=== PATIENT | male | born 1965 | race Caucasian/White ===

== ENCOUNTER 2020-07-08 22:30 | Emergency (ER) | payer SELFPAY ==
--- NOTE | 2020-07-08 23:11 | ER Document Report ---
ED Medical Screen (RME) - General Chief Complaint: Medical Clearance Stated Complaint: MEDICAL CLEARANCE Time Seen by Provider: 07/08/20 23:03 Primary Care Provider: SURJIT OLSON [Primary Care Provider] - Follow up as needed Mode of Arrival: Ambulatory Information source: Patient Notes: 55-year-old male presented to ED for EtOH intoxication. He needs clearance to go to [facility]. He is here with mobile crisis. She states she came earlier and he was much more alert and cooperative and she came back to get him to take him to [facility] and he was intoxicated. He states he drank a half a gallon of vodka the day. He states he does use meth but has not used any in about a week and is very angry about that. He states he does not use any other type of drugs. I spoke with the charge nurse about what he is here for. I have greeted and performed a rapid initial assessment of this patient. A comprehensive ED assessment and evaluation of the patient, analysis of test r esults and completion of medical decision making process will be conducted by an additional ED providers. 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 Malignancy Medical History: Reports None GI Medical History: Reports: None Musculoskeltal Medical History: Reports None Skin Medical History: Reports None Psychiatric Medical History: Reports: None Traumatic Medical History: Reports: Hx Fractures - right leg compound fracture "awhile back" Infectious Medical History: Reports: None Surgical Hx: Negative Past Surgical History: Reports: None - Immunizations Hx Diphtheria, Pertussis, Tetanus Vaccination: Yes Physical Exam - Vital signs Vitals: Temp Pulse Resp BP Pulse Ox 98.2 F 108 H 20 167/105 H 96 07/08/20 22:50 07/08/20 22:50 07/08/20 22:50 07/08/20 22:50 07/08/20 22:50 Course - Vital Signs Vital signs: Temp Pulse Resp BP Pulse Ox 98.2 F 108 H 20 167/105 H 96 07/08/20 22:50 07/08/20 22:50 07/08/20 22:50 07/08/20 22:50 07/08/20 22:50 Doctor's Discharge - Discharge Referrals: LOCALMD,NO [Primary Care Provider] - Follow up as needed
--- NOTE | 2020-07-08 23:50 | ER Document Report ---
ED General - General Chief Complaint: ETOH Abuse Stated Complaint: MEDICAL CLEARANCE Time Seen by Provider: 07/08/20 23:03 Primary Care Provider: SURJIT OLSON [NO LOCAL MD] - Follow up as needed Mode of Arrival: Ambulatory - [facility] Notes: 55-year-old male presents with alcohol intoxication. Patient is a daily consumer of alcohol, typically drinks 1/5 of vodka, states he last drink this morning. He was intended to go to rehab facility, however he was too intoxicated therefore came to the emergency department for medical clearance. Patient currently denies complaints and he is eager to leave the emergency department so that he may go to treatment. 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 Malignancy Medical History: Reports None GI Medical History: Reports: None Musculoskeletal Medical History: Reports None Skin Medical History: Reports None Psychiatric Medical History: Reports: None Traumatic Medical History: Reports: Hx Fractures - right leg compound fracture "awhile back" Infectious Medical History: Reports: None Surgical Hx: Negative Past Surgical History: Reports: None - Immunizations Hx Diphtheria, Pertussis, Tetanus Vaccination: Yes Review of Systems - Review of Systems Constitutional: No symptoms reported EENT: No symptoms reported Cardiovascular: No symptoms reported Respiratory: No symptoms reported Gastrointestinal: No symptoms reported Genitourinary: No symptoms reported Male Genitourinary: No symptoms reported Musculoskeletal: No symptoms reported Skin: No symptoms reported Hematologic/Lymphatic: No symptoms reported Neurological/Psychological: No symptoms reported Physical Exam - Vital signs Vitals: Temp Pulse Resp BP Pulse Ox 98.2 F 108 H 20 167/105 H 96 07/08/20 22:50 07/08/20 22:50 07/08/20 22:50 07/08/20 22:50 07/08/20 22:50 - General General appearance: Appears well, Alert In distress: None - HEENT Head: Normocephalic, Atraumatic Eyes: No: Scleral icterus Extraocular movements intact: Yes Pupils: PERRL - Respiratory Respiratory status: No respiratory distress - Cardiovascular Rhythm: Regular - Abdominal Inspection: No: Obese - Extremities General upper extremity: Normal ROM General lower extremity: Normal ROM - Neurological Neuro grossly intact: Yes Cognition: Normal Orientation: AAOx4 Notes: Ambulatory with steady gait - Psychological Associated symptoms: Other - Intoxicated - Skin Skin Color: Normal Course - Re-evaluation Re-evalutation: 55-year-old male with daily alcohol use here for medical clearance that he may go to [place]. On exam he does appear to be intoxicated, however speaks with full and clear sentences, ambulates with steady gait. Last drink alcohol this morning per his report. Labs have been ordered as part of the medical clearance process. He voices no complaints at this time and is otherwise well-appearing. 07/09/20 00:46 And a level 404 unfortunately, patient is drinking p.o. fluids. Nursing reports that he is having some agitation and wanting to leave the emergency department, I have ordered a Valium to help calm him. Will need a repeat ethanol level around 4 AM 07/09/20 01:36 No leukocytosis. Chronic anemia. Electrolytes within normal limits. Creatinine within normal limits. No elevation of LFTs. No UTI. Salicylates/APAP negative. UDS negative. 07/09/20 02:40 Patient to be turned over to overnight physician pending repeat alcohol level. If near or below 250 feel that he is appropriate for discharge to [place]. - Vital Signs Vital signs: Temp Pulse Resp BP Pulse Ox 98.2 F 108 H 17 167/105 H 98 07/08/20 22:50 07/08/20 22:50 07/09/20 01:10 07/08/20 22:50 07/09/20 01:10 - Laboratory Result Diagrams: 07/08/20 23:45 07/08/20 23:45 Laboratory results interpreted by me: 07/08/20 07/08/20 23:45 23:45 RBC 5.59 H Hgb 11.4 L Hct 35.8 L MCV 64 L MCH 20.4 L MCHC 31.8 L RDW 25.6 H Plt Count 522 H Lymph % (Auto) 45.2 H Total Protein 8.6 H Salicylates < 1.0 L Acetaminophen < 10 L Serum Alcohol 404 H* - EKG Interpretation by Me Additional EKG results interpreted by me: EKG is interpreted by me. Normal sinus rhythm, rate 94. Narrow QRS, QTC within normal limits. No ST segment elevation. Discharge - Discharge Clinical Impression: Alcohol intoxication Qualifiers: Complication of substance-induced condition: uncomplicated Qualified Code(s): F10.920 - Alcohol use, unspecified with intoxication, uncomplicated Disposition: PSYCH HOSP/UNIT Additional Instructions: Please go to [facility] to receive treatment for alcohol abuse. Return to the emergency department for any concerning worsening symptoms. Referrals: LOCALMD,NO [NO LOCAL MD] - Follow up as needed
[2020-07-09 00:25] LABS: ABSOLUTE BASOPHILS # (AUTO) 0.1 10^3/uL (0.0-0.2); ABSOLUTE EOSINOPHILS # (AUTO) 0.4 10^3/uL (0.0-0.6); ABSOLUTE LYMPHOCYTES (AUTO) 3.2 10^3/uL (0.5-4.7); ABSOLUTE MONOCYTES (AUTO) 0.4 10^3/uL (0.1-1.4); BASOPHILS % (AUTO) 1.1 % (0-2); EOSINOPHILS % (AUTO) 5.7 % (0-6); HEMATOCRIT 35.8 % (37.9-51.0); HEMOGLOBIN 11.4 g/dL (13.5-17.0); LYMPHOCYTES % (AUTO) 45.2 % (13-45); MEAN CORPUSCULAR HEMOGLOBIN 20.4 pg (27.0-33.4); MEAN CORPUSCULAR HGB CONC 31.8 g/dL (32.0-36.0); MONOCYTES % (AUTO) 5.5 % (3-13); PLATELET COUNT 522 10^3/uL (150-450); RED BLOOD COUNT 5.59 10^6/uL (4.35-5.55); RED CELL DISTRIBUTION WIDTH 25.6 % (11.5-14.0); SEGMENTED NEUTROPHILS % (AUTO) 42.5 % (42-78); TOTAL CELLS COUNTED % (AUTO) 100 %; WHITE BLOOD COUNT 7.1 10^3/uL (4.0-10.5)
[2020-07-09 00:27] LABS: ALBUMIN 4.8 g/dL (3.5-5.0); ALKALINE PHOSPHATASE 85 U/L (38-126); ANION GAP 17 (5-19); ASPARTATE AMINO TRANSFERASE 31 U/L (17-59); BILIRUBIN,DIRECT 0.2 mg/dL (0.0-0.4); BILIRUBIN,TOTAL 0.4 mg/dL (0.2-1.3); BLOOD UREA NITROGEN 12 mg/dL (7-20); CALCIUM 9.6 mg/dL (8.4-10.2); CARBON DIOXIDE 22 mmol/L (22-30); CHLORIDE 106 mmol/L (98-107); GLUCOSE 97 mg/dL (75-110); POTASSIUM 4.8 mmol/L (3.6-5.0); TOTAL PROTEIN 8.6 g/dL (6.3-8.2)
[2020-07-09 00:28] LABS: ACETAMINOPHEN < 10 ug/mL (10-30); SALICYLATE < 1.0 mg/dL (2.0-20.0)
[2020-07-09 00:40] LABS: ALCOHOL 404 mg/dL (NONE DETECTED)
[2020-07-09] MEDS ORDERED: DIAZEPAM 5 MG TABLET PO ONE (00:43)
[2020-07-09 00:57] LABS: APPEARANCE,URINE CLEAR; BILIRUBIN,URINE NEGATIVE (NEGATIVE); COLOR,URINE STRAW; GLUCOSE, URINE NEGATIVE (NEGATIVE); KETONES,URINE NEGATIVE (NEGATIVE); LEUKOCYTE ESTERASE,URINE NEGATIVE (NEGATIVE); NITRITE,URINE NEGATIVE (NEGATIVE); PROTEIN,URINE NEGATIVE (NEGATIVE); URINE SPECIFIC GRAVITY 1.004; UROBILINOGEN,URINE NEGATIVE mg/dL (<2.0)
[2020-07-09 01:01] LABS: TOXIC GRANULATION 1+
[2020-07-09 01:02] LABS: ANISOCYTOSIS 3+; HYPOCHROMASIA 2+; OVALOCYTES SLIGHT; PLATELET COMMENT INCREASED; POIKILOCYTOSIS SLIGHT; POLYCHROMASIA SLIGHT
[2020-07-09 01:03] LABS: MEAN CORPUSCULAR VOLUME 64 fl (80-97)
[2020-07-09 01:17] LABS: URINE AMPHETAMINES SCREEN NEGATIVE; URINE BARBITURATES SCREEN NEGATIVE; URINE BENZODIAZEPINES SCREEN NEGATIVE; URINE COCAINE SCREEN NEGATIVE; URINE MARIJUANA (THC) SCREEN NEGATIVE; URINE METHADONE SCREEN NEGATIVE; URINE PHENCYCLIDINE SCREEN NEGATIVE
[2020-07-09 06:19] VITALS: BP 107/82
--- NOTE | 2020-07-09 07:49 | EKG REPORT ---
SEVERITY:- NORMAL ECG - SINUS RHYTHM : Confirmed by: Faisal Vizcarra MD 09-Jul-2020 07:48:53
[2020-07-09 10:18] LABS: PATH REVIEW PATHOLOGIST REVIEWED
== END 2020-07-09 06:24 ==
LOC: ER 22:30
DX: F10.920 Alcohol use, unspecified with intoxication, uncomplicated (principal); D64.9 Anemia, unspecified
CPT/HCPCS: 36415; 80053; 80307; 81001; 85025; 93005; 93010; 99285